=== PATIENT | female | born 1965 | race Caucasian/White ===

== ENCOUNTER 2017-01-19 03:28 | Observation (INO) | payer MEDICARE, OTHER ==
--- NOTE | ~2017-01-19 | HP ---
History And Physical [facility] [address] [place]. [address] NAME: FAISAL GONSALEZ : 65 STATUS : ADM Errol PAT#: [id number] AGE: 51 ADM/REG DATE : 01/19/17 MR#: [id number] REPORT SERV DATE: 01/19/17 DICTATED BY: ROMAN RIGGS DATE: 01/19/17 REPORT STATUS : Draft TRANSCRIBED BY: MODSol DATE: 01/19/17 DATE OF ADMISSION: 01/19/2017 CHIEF COMPLAINT: A 51-year-old female presenting with chest pain. HISTORY OF PRESENT ILLNESS: The patient's history was obtained through careful interview with the patient, coupled with review of [facility] medical records. The patient was evaluated for dizziness and palpitations with a Holter monitor. The report in our system dates it at 12/19/2016, read by Dr. Mathur with [facility] Cardiology and looked "negative". The patient was however scheduled for an outpatient evaluation and meeting with Dr. Lopez with [facility] on 02/07 to review the results of her Holter monitor and to evaluate symptoms of lightheadedness and palpitations. But over last two to three days, the patient has been feeling weak and tired with intermittent lightheadedness, dizziness, nausea. On the night leading up to admission, she developed new onset chest discomfort as well. She describes it as right under her left breast, sometimes a stabbing quality pain that radiates to the left base of her lung, towards the back, and 8/10 severity. No shortness of breath. No diaphoresis. No fevers or chills. She has had a mild nonproductive cough. No lower extremity edema. No leg pain. She presented on the night leading up to admission at [facility] Emergency Department and initially had a reported pulse of 41 and while in the emergency department, had a pulse between about 45 and 55 with occasional recurrence of lightheadedness and dizziness. REVIEW OF SYSTEMS: Otherwise, a 14-point review of systems was obtained and was negative. PAST MEDICAL HISTORY: 1. Migraine headaches. 2. Chronic pain management seen by Dr. Jaimes. 3. Gastric bypass surgery about four years ago with about 100-pound weight loss. 4. Post right knee surgery DVT. 5. No cardiac disease. 6. No lung disease. PAST SURGICAL HISTORY: 1. Back surgery x2. 2. Cholecystectomy. History And Physical [address] [place]. [address] NAME: FAISAL GONSALEZ : 65 STATUS : ADM Errol PAT#: [id number] AGE: 51 ADM/REG DATE : 01/19/17 MR#: [id number] REPORT SERV DATE: 01/19/17 DICTATED BY: ROMAN RIGGS DATE: 01/19/17 REPORT STATUS : Draft TRANSCRIBED BY: YOGESH DATE: 01/19/17 3. Tubal ligation. 4. Right rotator cuff repair. 5. Left foot surgery. 6. Hysterectomy with oophorectomy. 7. Right knee surgery. 8. Gastric bypass surgery. ALLERGIES: NO KNOWN DRUG ALLERGIES. SOCIAL HISTORY: The patient is a smoker. Does not drink alcohol. She is and then , lives in [place], [place], has two children. FAMILY HISTORY: Daughter with autism. A very strong family history of heart disease. Had a 33-year-old cousin " suddenly" of unknown cause. CURRENT MEDICATIONS: Aspirin 81 mg daily, Klonopin 1 mg p.o. at bedtime, estradiol 2 mg daily, Prozac 60 mg daily, Neurontin 300 mg p.o. b.i.d., hydrochlorothiazide 25 mg daily, Cozaar 50 mg daily, oxycodone 15 mg p.o. four times a day, Opana extended release 20 mg p.o. b.i.d., Zanaflex 4 mg p.o. b.i.d. PHYSICAL EXAMINATION: VITAL SIGNS: Temperature 97.8, pulse 54, blood pressure 124/60, respiratory rate 14, O2 saturation 100% on room air. GENERAL: Pleasant, cooperative, female, no evidence of acute distress at this time. HEENT: Pupils equal, round, and reactive to light. No conjunctival pallor. No scleral icterus. Nares are patent. Oropharynx is clear of obstruction. Moist mucous membranes. NECK: Trachea midline. No thyromegaly. LYMPH: No cervical lymphadenopathy. No supraclavicular lymphadenopathy. RESPIRATORY: Clear to auscultation at bases. No wheezes, rales, or rhonchi. Normal respiratory effort. CARDIOVASCULAR: Bradycardic, regular rhythm. No murmurs, rubs, or gallops. No extremity edema is appreciated. ABDOMEN: Soft, nontender, nondistended. Normal bowel sounds auscultated throughout. No hepatosplenomegaly. DERMATOLOGIC: Warm and dry extremities. No pallor. No cyanosis. PSYCHIATRIC: Normal affect. Good mood. Alert and oriented x3. LABORATORY DATA: White blood cell count 9.9, hemoglobin 14, hematocrit 41, platelets 237. Sodium 140, potassium 3.7, chloride 103, bicarb 30, BUN 13, creatinine 0.8, glucose 95. Troponin negative. INR 1.0. STUDIES: 1. Chest x-ray was reported as negative from outlying facility. 2. EKG by my own evaluation shows sinus bradycardia without any major abnormalities. ASSESSMENT AND PLAN: History And Physical [address] [address] NAME: FAISAL GONSALEZ : 65 STATUS : ADM Errol PAT#: [id number] AGE: 51 ADM/REG DATE : 01/19/17 MR#: [id number] REPORT SERV DATE: 01/19/17 DICTATED BY: ROMAN RIGGS DATE: 01/19/17 REPORT STATUS : Draft TRANSCRIBED BY: MODL DATE: 01/19/17 1. Chest pain, on aspirin. Check nuclear cardiac stress test. Check an echocardiogram. 2. Bradycardia, possibly symptomatic? Consult Dr. Lopez, gis professor. 3. Pain management. 4. History of gastric bypass surgery 4 years ago with about 100 pound weight loss. KPL/MODL Roman Riggs M.D. / [id number] CC: Channing Reyes M.D. Van Stephen Monroe Jr., M.D.
--- NOTE | ~2017-01-19 | DS ---
Discharge Summary [facility] [address] [place]. [address] NAME: FAISAL GONSALEZ : 65 STATUS : DIS Errol PAT#: [id number] AGE: 51 ADM/REG DATE : 01/19/17 MR#: [id number] REPORT SERV DATE: 01/19/17 DICTATED BY: MISAEL KELLEY DATE: 01/19/17 REPORT STATUS : Draft TRANSCRIBED BY: MODSol DATE: 01/19/17 ADMISSION DATE: 01/19/2017 DISCHARGE DATE: DISCHARGE DIAGNOSES: 1. Chest pain. 2. Bradycardia. 3. Chronic pain syndrome. 4. Falls. 5. History of gastric bypass surgery. 6. Tobacco use. 7. Cervicalgia and chronic back pain of thoracic and lumbar. DISCHARGE MEDICATIONS: Aspirin 81 mg daily, Prozac 60 mg daily, Neurontin 300 mg twice a day, hydrochlorothiazide 25 mg daily, Cozaar 50 mg daily, Klonopin 1 mg in the evening, Roxicodone 15 mg four times a day, Opana ER 20 mg every 12 hours, estradiol 2 mg daily, but I have counseled that she is at high risk for blood clot with her continued smoking, Zanaflex 4 mg twice a day. HISTORY OF PRESENT ILLNESS: A 51-year-old white female presenting with chest pain. Please see initial H and P of Dr. Jimmy Christine. This patient is admitted to the Hospitalist Service for observation and workup. CONSULTS DURING THIS ADMISSION: Cardiology, Dr. Tavares. PROCEDURES AND IMAGING DURING THIS ADMISSION: Include a CTA of the chest that was negative for pulmonary embolus. An echocardiogram showing ejection fraction of 60% to 65% with mild tricuspid regurgitation and myocardial perfusion imaging test that was overall low risk. HOSPITAL COURSE: I saw the patient the morning of 01/19 when she was complaining of some mild chest pressure particularly under the left breast and seemed to be worse with inspiration. Given the findings that she was on estrogen, on chronic opiates, and positive tobacco use, I ordered a CTA of the chest to rule out pulmonary embolus, however, as stated above, this was negative. The patient underwent the above described echo and myocardial perfusion imaging testing and has not had any more symptoms of chest pain. Subsequent to this, her troponins were negative. She has had no EKG changes. Cardiology saw the patient and did not pursue any further workup. It is recommended following up with her primary care. In further discussion with the patient, she revealed that she has had some difficulties with falls at home and has had some difficulties with her back for some time. I have counseled her on the need to follow up with her primary care, and to get a further workup of her spine and likely see an Ortho Spine surgeon. She has had imaging done as an outpatient. I have also counseled her in regard to her opiates as these can be contributing to her falls and that she needs to wean off these, and lastly, I have counseled her extensively on the need to quit smoking. I have updated the patient and patient's family at bedside. She is in agreement with this plan going forward. The primary care is Dr. Sangeetha Yadav who I have instructed to follow up with in one to two weeks. Discharge Summary [address] [address] NAME: FAISAL GONSALEZ : 65 STATUS : DIS Errol PAT#: [id number] AGE: 51 ADM/REG DATE : 01/19/17 MR#: [id number] REPORT SERV DATE: 01/19/17 DICTATED BY: MISAEL KELLEY DATE: 01/19/17 REPORT STATUS : Draft TRANSCRIBED BY: YOGESH DATE: 01/19/17 [facility] [place]YOGESH Misael Kelley NP / [id number] CC: Channing Narayanan M.D.
--- NOTE | ~2017-01-19 | CN ---
Consultation Report [facility] [address] [place]. [address] NAME: FAISAL GONSALEZ : 65 STATUS : ADM Errol PAT#: [id number] AGE: 51 ADM/REG DATE : 01/19/17 MR#: [id number] REPORT SERV DATE: 01/19/17 DICTATED BY: PEREZ GARCIA DATE: 01/19/17 REPORT STATUS : Draft TRANSCRIBED BY: YOGESH DATE: 01/19/17 CARDIOLOGY CONSULTATION DATE OF CONSULTATION: 01/19/2017 REFERRING REASON: Chest pain. HISTORY OF PRESENT ILLNESS: This is a pleasant 51-year-old heavy smoker who presented to [facility] with severe, mostly sharp left-sided chest pain under her left breast. Three doses of nitroglycerin did not relieve the pain, but finally the narcotics did. She was transferred to Hospitalist Service at [facility]. Of note, she has initially a pending appointment with Dr. Lopez sometimes in January for evaluation of chest pain. She denied any palpitations or syncope. Her Holter monitor in 11/[address] Mathur as normal. No evidence of sinus bradycardia or pauses. The patient has a long history of smoking, but no previous cardiac history. She has been on narcotics for chronic pain syndrome mostly in the back. She also has some bilateral footdrop, but has been ambulating without any significant difficulties. She denies hyperlipidemia or diabetes, but has a personal history of hypertension. The patient reported three days on and off poorly- defined left-sided chest pain, mostly sharp. Of note, she also has a hiatal hernia. She had another episode of severe chest pain last night, but the enzymes so far remain negative. The hospitalist ordered CTA of the chest to rule out pulmonary embolism. She is now hemodynamically stable. The rest of review of systems is negative. PAST MEDICAL HISTORY: 1. Migraine headaches. Denies chronic pain syndrome, [facility]. 2. Chronic low back pain with a history of back surgery. 3. History of gastric bypass surgery four years ago with subsequent significant weight loss. 4. Reported hiatal hernia. 5. Normal Holter monitor, 11/2016, without evidence of bradycardia. ALLERGIES: NO KNOWN DRUG ALLERGIES. SOCIAL HISTORY: The patient is a retired [employer] AND [employer]. She is . She has been smoking for the last 23 years, currently one pack a day. Denies drinking alcohol or using street drugs. She has two adult kids. She is ambulating now without any support. FAMILY HISTORY: Negative for sudden cardiac or premature coronary artery disease in the family. HOME MEDICATIONS: Aspirin 81 mg once a day, Klonopin 1 mg once a day, estradiol 2 mg once a day, Prozac 20 mg once a day, Neurontin 300 mg twice a day, hydrochlorothiazide 25 mg once a day, losartan 50 mg once a day, oxycodone 15 mg once a day, Opana 20 mg twice a day, and Zanaflex 4 mg twice a day. Consultation Report [facility] [id number] [place]. [address] NAME: FAISAL GONSALEZ : 65 STATUS : ADM Errol PAT#: [id number] AGE: 51 ADM/REG DATE : 01/19/17 MR#: [id number] REPORT SERV DATE: 01/19/17 DICTATED BY: PEREZ GARCIA DATE: 01/19/17 REPORT STATUS : Draft TRANSCRIBED BY: YOGESH DATE: 01/19/17 PHYSICAL EXAMINATION: GENERAL: No acute distress. Appears stated age. VITAL SIGNS: Blood pressure 113/56, heart rate 64 and regular. HEENT: Pupils reactive to light and accommodation. Moist mucosa membrane. NECK: No JVD. Normal carotid upstroke. No carotid bruits. LUNGS: Clear to auscultation bilaterally. Normal inspiratory efforts. COR: Normal S1, S2. No S3 or S4. No significant rub or murmurs. ABD: Soft, nontender, nondistended. EXT: No edema. Decreased pedal pulses bilaterally. SKIN: Warm with normal turgor. MS: No kyphosis. NEURO/PSY: Alert and oriented. Nonfocal. DATA: Electrolytes are within normal limits. Troponin x3 now negative. Brain natriuretic peptide normal at 17. Normal TSH. Electrocardiogram: Normal sinus rhythm. 52 beats per minute. No acute ST-T changes. She remains in normal sinus rhythm without any evidence of bradycardia overnight. ASSESSMENT AND PLAN: 1. Episodes of chest pain of unclear etiology. 2. Hiatal hernia. 3. Chronic pain syndrome. The patient's cardiovascular exam is normal. The etiology of her in chest pain is unclear, but due to the risk factors, I cannot exclude coronary artery as a culprit. If her CT of the chest is negative for pulmonary embolism, we will proceed with nuclear cardiac stress test later today. Disposition per results. We discussed alternative explanation for her chest pain also with the patient. There is no indication for pacemaker and no evidence of heart block or significant bradycardia. OJL/MODL Perez Garcia M.D. / [id number] CC: Channing Narayanan M.D.
[~2017-01-19 03:28] MED LIST: NEUR300 PO; PCET PO; PROZAC20 MG PO
[2017-01-19] MEDS ORDERED: NEUR300 PO (03:40)
[2017-01-19] MEDS ORDERED: KLONO1 PO (03:41)
[2017-01-19] MEDS ORDERED: ESTRADIOL2 MG PO (03:41)
[2017-01-19] MEDS ORDERED: COZ50 PO (03:42)
[2017-01-19] MEDS ORDERED: HYDROCHLOROT25 MG PO (03:42)
[2017-01-19] MEDS ORDERED: ZANAFLEX 4 MG TA4 MG PO (03:43)
[2017-01-19] MEDS ORDERED: OPANA ER20 MG PO (03:44)
[2017-01-19] MEDS ORDERED: ROXICODONE15 MG PO (03:44)
[2017-01-19] MEDS ORDERED: ASAB PO (03:45)
[2017-01-19] MEDS ORDERED: PROZAC PO (03:46)
[2017-01-19 07:16] LABS: BASOPHILS 0.3 %; BASOPHILS ABSOLUTE 0.03 10/3/uL (0.0-0.16); EOSINOPHILS 1.8 %; EOSINOPHILS ABSOLUTE 0.16 10/3/uL (0.0-0.53); IMMATURE GRANULOCYTES 0.2 %; IMMATURE GRANULOCYTES ABSOLUTE 0.02 10/3/uL (0.0-0.11); LYMPHOCYTES 37.8 %; LYMPHOCYTES ABSOLUTE 3.36 10/3/uL (0.67-4.30); MEAN CORPUSCULAR HEMOGLOB 28.7 pg (26.0-34.0); MEAN PLATELET VOLUME 11.9 fL (9.2-13.0); MONOCYTES 7.8 %; MONOCYTES ABSOLUTE 0.69 10/3/uL (0.21-1.20); NEUTROPHILS 52.1 %; NEUTROPHILS ABSOLUTE 4.64 10/3/uL (2.02-8.40); PLATELET COUNT 280 10/3/uL (150-400); RBC DISTRIBUTION WIDTH 13.3 % (12.0-16.0); WHITE BLOOD CELLS 8.9 10/3/uL (4.5-10.5)
[2017-01-19 07:18] LABS: HEMATOCRIT 42.1 % (36.0-48.0); HEMOGLOBIN 13.9 g/dL (12.0-16.0); MANUAL DIFF NO %; RED CELL COUNT 4.84 10/6/uL (4.0-5.6)
[2017-01-19 07:21] LABS: INTERNATIONAL NORMAL RATI 1.1 UNITS (-); PARTIAL THROMBO TIME 28.7 SEC (22.5-37.2)
[2017-01-19 07:39] LABS: A/G RATIO 0.9 (0.7-1.9); ALBUMIN 3.5 G/DL (3.5-5.0); ALKALINE PHOSPHATASE 110 U/L (45-117); BUN (BLOOD UREA NITROGEN) 11 MG/DL (6-23); CALCIUM, SERUM 8.7 MG/DL (8.5-10.4); CHLORIDE, SERUM 107 MMOL/L (96-112); CO2 (CARBON DIOXIDE) 34 MMOL/L (24-34); GFR AFRICAN AMERICAN 116 ML/MIN (>=60); GFR NON AFRICAN AMERICAN 100 ML/MIN (>=60); GLOBULIN 3.7 G/DL (2.5-4.1); GLUCOSE, SERUM 72 MG/DL (60-99); PHOSPHORUS, SERUM 3.9 MG/DL (2.5-4.5); SGOT(AST) 17 U/L (5-40); SGPT(ALT) 21 U/L (5-65); SODIUM, SERUM 144 MMOL/L (135-148); TOTAL BILIRUBIN 0.4 MG/DL (0-1.2); TOTAL PROTEIN 7.2 G/DL (6.0-8.5); TROPONIN I <0.02 NG/ML (<0.05)
== END 2017-01-19 16:43 | disposition home or self-care (01) ==
LOC: CDU1 03:28 → CDU2 03:35
PROVIDERS: Hospitalist
DX: R07.9 Chest pain, unspecified (principal); R00.1 Bradycardia, unspecified; G43.909 Migraine, unspecified, not intractable, without status migrainosus; G89.4 Chronic pain syndrome; R55 Syncope and collapse; M54.5 Low back pain; M54.6 Pain in thoracic spine; F17.210 Nicotine dependence, cigarettes, uncomplicated; Z98.84 Bariatric surgery status; Z98.890 Other specified postprocedural states; Z90.49 Acquired absence of other specified parts of digestive tract; Z98.51 Tubal ligation status; Z90.710 Acquired absence of both cervix and uterus; Z79.82 Long term (current) use of aspirin; Z79.899 Other long term (current) drug therapy
CPT/HCPCS: 71275; 78452; 80053; 83735; 83880; 84100; 84443; 84484; 85025; 85610; 85730; 93017; 93306; 96372; A9270-GY; A9502; G0378; J0153; Q9967